=== PATIENT | male | born 1945 | race Caucasian/White ===

== ENCOUNTER 2018-08-25 08:09 | Emergency (ER) | payer OTHER, MEDICARE ==
[~2018-08-25 08:09] MED LIST: EPINEPHRINE INJ 1 MG/10 ML DISP.SYRIN ONE; SODIUM BICARBONATE 8.4% INJ 50 MEQ/50 ML DISP.SYRIN ONE
--- NOTE | 2018-08-25 08:21 | ER Document Report ---
ED Cardiac - General Stated Complaint: UNRESPONSIVE Time Seen by Provider: 08/25/18 08:17 Notes: 85-year-old male who had shortness of breath this morning and activated EMS. Upon arrival EMS found the patient to be in agonal respirations and then promptly proceeded to go into cardiac arrest. EMS coded the patient and brought the patient here to the emergency department. EMS had 30 minutes of CPR time. They have given epinephrine. The patient has been PEA rhythm the entire time. Per the family everything was okay last night. He was normal when he went to bed. No history of any trauma throughout the night. Past Medical History - Social History Smoking Status: Unknown if Ever Smoked Family History: None, Other Review of Systems - Review of Systems -: Yes ROS unobtainable due to patient's medical condition Physical Exam - Notes Notes: GENERAL_APPEARANCE: Pulseless apneic CPR in progress VITALS: reviewed, see vital signs table. HEAD: no_swelling on the head. EYES: Pupils and unreactive conjunctiva_clear. NOSE: no_nasal_discharge. MOUTH: (-)decreased moisture. THROAT: no_tonsilar_inflammation, no_airway_obstruction. no_lymphadenopathy, advanced airway present NECK: supple, negative JVD or trachea deviation CHEST_WALL: Negative subcutaneous emphysema LUNGS: no_wheezing, no_rales, no_rhonchi, (-)accessory muscle use, good air exchange bilateral. HEART: Asystole on the monitor, bedside ultrasound shows no cardiac motion ABDOMEN: No obvious masses no bowel sounds, mild distention EXTREMITIES: Cool, no pulses present no obvious wounds or trauma, right BKA, IO in left proximal tibia SKIN: Cold ashen, MENTAL_STATUS: Unresponsive Neuro: Does not withdraw to pain has no blink reflex, not breathing above bagging Course - Re-evaluation Re-evalutation: 08/25/18 08:19 EMS did 30 minutes of ACLS protocol. Upon arrival the patient was pulseless and apneic. Tube was confirmed 7.0. Lungs were clear and equal. There was an IO in the left proximal tibia. Ultrasound showed no heart motion. We did several rounds of medications including epinephrine and bicarbonate. The patient did not respond to these measures. Again bedside ultrasound showed no cardiac motion with a idioventricular PEA type rhythm. The code was called at 8:12 AM. I will speak with the family. Discharge - Discharge Clinical Impression: Cardiac arrest Condition: Critical Disposition:
== END 2018-08-25 11:23 | disposition expired ==
LOC: ER 08:09
DX: I46.9 Cardiac arrest, cause unspecified (principal)
CPT/HCPCS: 99285; 92950; 96374; J0171; J3490